=== PATIENT | female | born 1965 | race Caucasian/White ===

== ENCOUNTER 2016-04-23 07:01 | Emergency (ER) | payer BC ==
[2016-04-23 07:11] VITALS: BP 128/68
--- NOTE | 2016-04-23 07:22 | UC ---
Throat Pain/Nasal Pedro HPI - HPI Summary HPI Summary: sore throat and cough x 5 days, + nasal congestion , fever, chills, body aches - History of Current Complaint Chief Complaint: UCRespiratory Stated Complaint: SORE THROAT,ACHY,FEVER,COUGH Time Seen by Provider: 04/23/16 07:04 Hx Obtained From: Patient Hx Last Menstrual Period: n/a Onset/Duration: Gradual Onset, Lasting Days - 5, Still Present Severity: Moderate Cough: Nonproductive Associated Signs & Symptoms: Positive: Nasal Discharge, Fever. Negative: Dysphagia, Hoarseness, Sinus Discomfort, Rash - Allergies/Home Medications Allergies/Adverse Reactions: Allergies Allergy/AdvReac Type Severity Reaction Status Date / Time Penicillins Allergy Shortness Verified 04/23/16 07:11 of Breath Codeine AdvReac Intermediate AGGITATION Verified 04/23/16 07:11 Tetracyclines & Related AdvReac Intermediate Nausea Verified 04/23/16 07:11 seasonal allergy Allergy Eyes Uncoded 04/23/16 07:11 Itchy/Swollen/Red/Watery PMH/Surg Hx/FS Hx/Imm Hx Endocrine History Of: Reports: Thyroid Disease - hypo Denies: Diabetes Cardiovascular History Of: Denies: Cardiac Disorders, Hypertension Respiratory History Of: Reports: Asthma Denies: COPD GI/ History Of: Denies: Ulcer - Surgical History Surgical History: None - Family History Known Family History: Positive: None, Hypertension - Social History Alcohol Use: None Substance Use Type: None Smoking Status (MU): Never Smoked Tobacco - Immunization History Most Recent Tetanus Shot: 07/24/2004 Review of Systems Constitutional: Fever, Chills, Fatigue Skin: Negative Eyes: Negative ENT: Sore Throat, Nasal Discharge Respiratory: Cough Cardiovascular: Negative Gastrointestinal: Negative Genitourinary: Negative All Other Systems Reviewed And Are Negative: Yes Physical Exam Triage Information Reviewed: Yes Appearance: Well-Appearing, No Pain Distress, Obese Vital Signs: Initial Vital Signs Temp 98.9 F 04/23/16 07:04 Pulse 93 04/23/16 07:04 Resp 24 04/23/16 07:04 BP 128/68 04/23/16 07:04 Pulse Ox 100 04/23/16 07:04 Vital Signs Reviewed: Yes Eye Exam: Normal Eyes: Positive: Conjunctiva Clear ENT: Positive: Normal ENT inspection, Hearing grossly normal, Pharyngeal erythema, Nasal congestion, Nasal drainage, TMs normal Neck exam: Normal Neck: Positive: Supple, Nontender, No Lymphadenopathy Respiratory: Positive: Chest non-tender, Lungs clear, Normal breath sounds Cardiovascular: Positive: RRR, No Murmur, Pulses Normal Skin Exam: Normal Throat Pain/Nasal Course/Dx - Differential Dx/Diagnosis Provider Diagnoses: acute bronchitis Discharge - Discharge Plan Condition: Stable Disposition: HOME Prescriptions: Azithromycin TAB* [Zithromax TAB (Z-PATRICIO) 250 mg #6 tabs] 2 tab PO .TODAY, THEN 1 DAILY #1 patricio Patient Education Materials: Acute Bronchitis (ED) Forms: *Work Release Referrals: Ehsan Mcdonnell MD [Primary Care Provider] - 7 Days
== END 2016-04-23 07:24 | disposition home or self-care (01) ==
LOC: UCCORT 07:01
DX: J20.9 Acute bronchitis, unspecified (principal); E66.9 Obesity, unspecified; Z88.0 Allergy status to penicillin; Z88.1 Allergy status to other antibiotic agents; Z88.5 Allergy status to narcotic agent
CPT/HCPCS: 99212; G0463

== ENCOUNTER 2017-03-02 16:30 | Emergency (ER) | payer BC ==
[2017-03-02 17:07] VITALS: BP 119/54
--- NOTE | 2017-03-02 17:19 | UC ---
Respiratory Complaint HPI - HPI Summary HPI Summary: C/O cough since yesterday with body aches and shortness of breath. Headache as well - History of Current Complaint Chief Complaint: UCRespiratory Stated Complaint: COUGH,ACHES,FEVER Time Seen by Provider: 03/02/17 17:11 Hx Obtained From: Patient Hx Last Menstrual Period: n/a Onset/Duration: Sudden Onset, Lasting Days - 1, Worse Since - onset Severity Initially: Moderate Severity Currently: Severe Character: Cough: Nonproductive Alleviating Factors: Nothing Associated Signs And Symptoms: Positive: Dyspnea, Fever, Chills, Wheezing, Nasal Congestion. Negative: Pleuritic Chest Pain - Allergies/Home Medications Allergies/Adverse Reactions: Allergies Allergy/AdvReac Type Severity Reaction Status Date / Time Penicillins Allergy Shortness Verified 03/02/17 17:07 of Breath Codeine AdvReac Intermediate AGGITATION Verified 03/02/17 17:07 Tetracyclines & Related AdvReac Intermediate Nausea Verified 03/02/17 17:07 seasonal allergy Allergy Eyes Uncoded 03/02/17 17:07 Itchy/Swollen/Red/Watery Home Medications: Home Medications Acetaminophen TAB* [Tylenol TAB*] 975 mg PO Q4H PRN 03/02/17 [History Confirmed 03/02/17] Amitriptyline TAB* [Elavil TAB*] 25 mg PO BEDTIME 03/02/17 [History Confirmed ] PMH/Surg Hx/FS Hx/Imm Hx Endocrine History: Dyslipidemia Respiratory History: Asthma - Surgical History Surgical History: None - Family History Known Family History: Positive: None, Cardiac Disease, Hypertension Negative: Diabetes - Social History Occupation: Employed Full-time Lives: With Family Alcohol Use: None Substance Use Type: None Smoking Status (MU): Never Smoked Tobacco Have You Smoked in the Last Year: No - Immunization History Most Recent Tetanus Shot: 07/24/2004 Review of Systems Constitutional: Fever, Chills, Fatigue Respiratory: Cough Musculoskeletal: Myalgia Neurological: Headache Is Patient Immunocompromised?: No All Other Systems Reviewed And Are Negative: Yes Physical Exam Triage Information Reviewed: Yes Appearance: No Pain Distress, Ill-Appearing, Obese Vital Signs: Initial Vital Signs Temp 99.1 F 03/02/17 17:03 Pulse 112 03/02/17 17:03 Resp 21 03/02/17 17:03 BP 119/54 03/02/17 17:03 Pulse Ox 97 03/02/17 17:03 Vital Signs Reviewed: Yes Eyes: Positive: Conjunctiva Inflamed - OU ENT: Positive: Pharynx normal, TMs normal Neck exam: Normal Respiratory: Positive: Lungs clear, Wheezing - expiratory wheeze with cough. Cardiovascular Exam: Normal Musculoskeletal Exam: Normal Neurological Exam: Normal Psychological Exam: Normal Skin Exam: Normal UC Diagnostic Evaluation - Laboratory O2 Sat by Pulse Oximetry: 97 Respiratory Course/Dx - Differential Dx/Diagnosis Differential Diagnosis/HQI/PQRI: Asthma, Influenza, Lower Resp Infection, Sinusitis Provider Diagnoses: Influenza Type A Discharge - Discharge Plan Condition: Stable Disposition: HOME Prescriptions: Oseltamivir CAP* [Tamiflu CAP*] 75 mg PO BID #10 cap Patient Education Materials: Influenza (ED), Oseltamivir (By mouth) Forms: *Work Release Referrals: Ehsan Mcdonnell MD [Primary Care Provider] -
[2017-03-02] MEDS ORDERED: Ibuprofen TAB* 600 MG PO ONE (17:23)
[2017-03-02] MEDS ORDERED: Oseltamivir CAP* 75 MG PO ONE (17:34)
== END 2017-03-02 17:46 | disposition home or self-care (01) ==
LOC: UCCORT 16:30
DX: J10.1 Influenza due to other identified influenza virus with other respiratory manifestations (principal); E78.5 Hyperlipidemia, unspecified; J45.909 Unspecified asthma, uncomplicated; Z88.5 Allergy status to narcotic agent; Z88.0 Allergy status to penicillin; E66.9 Obesity, unspecified
CPT/HCPCS: 87502; 99212; A9270-GY; G0463

== ENCOUNTER 2017-06-14 16:34 | Emergency (ER) | payer BC ==
[2017-06-14 17:48] VITALS: BP 163/78
--- NOTE | 2017-06-14 17:52 | UC ---
Respiratory Complaint HPI - HPI Summary HPI Summary: sore throat cough headaches body aches and fever for 2 days--some nausea and vomiting today--no abdomen pain - History of Current Complaint Chief Complaint: UCGeneralIllness Stated Complaint: SORE THROAT/FEVER Time Seen by Provider: 06/14/17 17:43 Hx Obtained From: Patient Hx Last Menstrual Period: n/a ?: No Onset/Duration: Sudden Onset, Lasting Days - 2, Worse Since - today Timing: Constant Severity Initially: Mild Severity Currently: Moderate Pain Intensity: 5 Pain Scale Used: 0-10 Numeric Character: Cough: Nonproductive Aggravating Factors: Nothing Alleviating Factors: OTC Meds Associated Signs And Symptoms: Positive: Fever, Chills, URI, Nasal Congestion - Allergies/Home Medications Allergies/Adverse Reactions: Allergies Allergy/AdvReac Type Severity Reaction Status Date / Time codeine Allergy Agitation Verified 06/14/17 17:44 Penicillins Allergy Shortness Verified 06/14/17 17:44 of Breath Tetracyclines Allergy Nausea And Verified 06/14/17 17:44 Vomiting seasonal/environmental Allergy Eyes Uncoded 06/14/17 17:44 Itchy/Swollen/Red/Watery Home Medications: Home Medications Aspirin 81 mg CHEW TAB* [Aspirin Low Dose TAB*] 81 mg PO DAILY 06/14/17 [ History Confirmed 06/14/17] Levalbuterol HFA INHALER* [Xopenex Hfa Inhaler*] 2 puff INH QID PRN 06/14/17 [ History Confirmed 06/14/17] Levothyroxine TAB* [Synthroid TAB*] 75 mcg PO 0800 06/14/17 [History Confirmed 06/14/17] Lovastatin [Altoprev] 20 mg PO DAILY 06/14/17 [History Confirmed 06/14/17] PMH/Surg Hx/FS Hx/Imm Hx Previously Healthy: No Endocrine History: Hypothyroidism, Dyslipidemia Respiratory History: Asthma - Surgical History Surgical History: Yes Surgery Procedure, Year, and Place: right side neck lymph node bx (10-12 yrs ago ) - benign - Family History Known Family History: Positive: None, Cardiac Disease, Hypertension Negative: Diabetes - Social History Occupation: Employed Full-time Lives: With Family Alcohol Use: None Substance Use Type: None Smoking Status (MU): Never Smoked Tobacco Have You Smoked in the Last Year: No - Immunization History Most Recent Tetanus Shot: 07/24/2004 Review of Systems Constitutional: Fever, Chills, Fatigue Skin: Negative Eyes: Negative ENT: Sore Throat, Nasal Discharge Respiratory: Cough Cardiovascular: Negative Gastrointestinal: Negative Genitourinary: Negative Motor: Negative Neurovascular: Negative Musculoskeletal: Arthralgia Neurological: Headache Psychological: Negative Is Patient Immunocompromised?: No All Other Systems Reviewed And Are Negative: Yes Physical Exam Triage Information Reviewed: Yes Appearance: No Pain Distress, Ill-Appearing - mil, Obese Vital Signs: Initial Vital Signs Temp 101.9 F 06/14/17 17:39 Pulse 112 06/14/17 17:39 Resp 14 06/14/17 17:39 BP 163/78 06/14/17 17:39 Pulse Ox 95 06/14/17 17:39 Vital Signs Reviewed: Yes Eye Exam: Normal Eyes: Positive: Conjunctiva Clear ENT Exam: Normal ENT: Positive: Normal ENT inspection, Hearing grossly normal, Pharynx normal, Nasal congestion, Uvula midline. Negative: Nasal drainage, Tonsillar swelling, Tonsillar exudate, Trismus, Hoarse voice, Dental tenderness, Sinus tenderness Dental Exam: Normal Neck exam: Normal Neck: Positive: Supple, Nontender, No Lymphadenopathy Respiratory Exam: Normal Respiratory: Positive: Chest non-tender, Lungs clear, Normal breath sounds, No respiratory distress, No accessory muscle use Cardiovascular Exam: Normal Cardiovascular: Positive: RRR, No Murmur, Pulses Normal, Brisk Capillary Refill Abdominal Exam: Normal Abdomen Description: Positive: Nontender, No Organomegaly, Soft. Negative: CVA Tenderness (R), CVA Tenderness (L) Bowel Sounds: Positive: Present Musculoskeletal Exam: Normal Musculoskeletal: Positive: Strength Intact, ROM Intact, No Edema Neurological Exam: Normal Neurological: Positive: Alert, Muscle Tone Normal Psychological Exam: Normal Skin Exam: Normal UC Diagnostic Evaluation - Laboratory O2 Sat by Pulse Oximetry: 95 Diagnostic Studies Comment: ua-trace leukoesterace, influenza a/b (-), strep (-) - Radiology Xray Interpretation: No Acute Changes Radiology Interpretation Completed By: Radiologist Respiratory Course/Dx - Course Course Of Treatment: patient refuses zofran and suggestion to go to ED for further evaluation. Patient is agreeable to going to ED if Symptoms worsen or fail to begin to improve in the next 5-6 hours - Differential Dx/Diagnosis Provider Diagnoses: Acute febrile illness Discharge - Sign-Out/Discharge Documenting (check all that apply): Discharge - Discharge Plan Condition: Stable Disposition: HOME Patient Education Materials: Fever in Adults (ED) Referrals: Ehsan Mcdonnell MD [Primary Care Provider] - 1 Day Additional Instructions: If you worsen or fail to improve in the next few hours please go to the emergency department for further evaluation of fever-- - Billing Disposition and Condition Condition: STABLE Disposition: HOME
--- NOTE | 2017-06-14 18:44 | RAD ---
INDICATION: Cough, fever, nausea, headache, sore throat 2 days duration. History of asthma. COMPARISON: January 03, 2014 TECHNIQUE: Dual energy PA and routine lateral views of the chest were obtained. REPORT: Accounting for superimposed soft tissues with obese body habitus the lungs and pleural spaces are clear. Negative for cardiomegaly. Unremarkable central pulmonary vasculature. Accounting for rightward rotation the mediastinal contours are unremarkable. IMPRESSION: No evidence for pneumonia. Negative exam.
== END 2017-06-14 19:07 | disposition home or self-care (01) ==
LOC: UCCORT 16:34
DX: R50.9 Fever, unspecified (principal); Z88.3 Allergy status to other anti-infective agents; Z88.5 Allergy status to narcotic agent; Z88.0 Allergy status to penicillin
CPT/HCPCS: 71046; 81003; 87086; 87502; 87651; 99211; G0463

== ENCOUNTER 2018-08-19 07:09 | Emergency (ER) | payer BC ==
[2018-08-19 07:25] VITALS: BP 135/71
--- NOTE | 2018-08-19 07:57 | UC ---
Abdominal Pain Female HPI - HPI Summary HPI Summary: 52-year-old female comes in with a chief complaint of right upper quadrant abdominal pain. Started one week ago. Pain is constant. Overnight the pain was almost a 10 out of 10. Right now to 7 out of 10. No fevers no chills. Stools have been loose and light colored. Reports her urine is somewhat frothy. No prior abdominal surgeries. No chest pain no shortness of breath. Eating does not make the pain worse. Patient reports more than a month ago she had some left sided posterior chest pain with the emergency department where they found that she had diabetes with blood sugar 350. She reports the cardiac workup was normal. She was started on glyburide by her primary care physician. However that was discontinued because the blood sugars were go to load a 60. She was started on metformin at the beginning of July. Just before she was started on metformin she had blood work which showed a liver functions were elevated. Patient has not noticed any jaundiced. No burning with urination. - History of Current Complaint Chief Complaint: UCAbdominalPain Stated Complaint: LT SIDE PAIN Time Seen by Provider: 08/19/18 07:23 Hx Last Menstrual Period: n/a Pain Intensity: 7 Allergies/Adverse Reactions: Allergies Allergy/AdvReac Type Severity Reaction Status Date / Time codeine Allergy Agitation Verified 08/19/18 07:16 Penicillins Allergy Shortness Verified 08/19/18 07:16 of Breath Tetracyclines Allergy Nausea And Verified 08/19/18 07:16 Vomiting seasonal/environmental Allergy Eyes Uncoded 08/19/18 07:16 Itchy/Swollen/Red/Watery Home Medications: Home Medications Atorvastatin* [Lipitor*] 20 mg PO QPM 08/19/18 [History Confirmed 08/19/18] Cyclobenzaprine TAB* [Flexeril 10 MG TAB*] 5 mg PO TID PRN 08/19/18 [History Confirmed 08/19/18] Milk Thistle Seed Extract [Milk Thistle] 400 mg PO DAILY 08/19/18 [History Confirmed 08/19/18] metFORMIN* [Glucophage 500 MG TAB *] 500 mg PO BID 08/19/18 [History Confirmed 08/19/18] PMH/Surg Hx/FS Hx/Imm Hx Previously Healthy: Yes Endocrine History: Diabetes, Hypothyroidism, Dyslipidemia Respiratory History: Asthma - Surgical History Surgical History: Yes Surgery Procedure, Year, and Place: right side neck lymph node bx (10-12 yrs ago ) - benign - Family History Known Family History: Positive: None, Cardiac Disease, Hypertension Negative: Diabetes - Social History Alcohol Use: None Substance Use Type: None Smoking Status (MU): Never Smoked Tobacco Have You Smoked in the Last Year: No - Immunization History Most Recent Tetanus Shot: 07/24/2004 Review of Systems All Other Systems Reviewed And Are Negative: Yes Constitutional: Positive: Negative Skin: Positive: Negative Eyes: Positive: Negative ENT: Positive: Negative Respiratory: Positive: Negative Cardiovascular: Positive: Negative Gastrointestinal: Positive: Abdominal Pain Genitourinary: Positive: Other - SEE HPI Motor: Positive: Negative Neurovascular: Positive: Negative Musculoskeletal: Positive: Negative Neurological: Positive: Negative Psychological: Positive: Negative Is Patient Immunocompromised?: No Physical Exam Triage Information Reviewed: Yes Appearance: Well-Appearing, Well-Nourished, Pain Distress - MILD Vital Signs: Initial Vital Signs Temp 97.6 F 08/19/18 07:20 Pulse 88 08/19/18 07:20 Resp 18 08/19/18 07:20 BP 135/71 08/19/18 07:20 Pulse Ox 97 08/19/18 07:20 Vital Signs Reviewed: Yes Eye Exam: Normal Eyes: Positive: Conjunctiva Clear, Other: - NO SCLERAL ICTERUS Neck: Positive: Supple Respiratory: Positive: Lungs clear, Normal breath sounds, No respiratory distress Cardiovascular: Positive: RRR Abdomen Description: Positive: Soft, Other: - TENDER TO PALPATION RUQ/POSITIVE PONCE'S. Negative: CVA Tenderness (R), CVA Tenderness (L) Bowel Sounds: Positive: Present Musculoskeletal Exam: Normal Musculoskeletal: Positive: Strength Intact, ROM Intact Neurological Exam: Normal Neurological: Positive: Alert, Muscle Tone Normal Psychological Exam: Normal Psychological: Positive: Age Appropriate Behavior Skin Exam: Normal Abd Pain Female Course/Dx - Course Course Of Treatment: Patient Name: OBED NEVAREZ Medical Record#: [id number] Ordering Physician: Nelson Jones MD Acct.#: [id number] : 1965 Age: 52 Sex: F Location: [facility] Exam Date: 08/19/18 0748 ADM Status: REG ER Order Information: GALL BLADDER Accession Number: [id number] CPT: 31730 HISTORY: RUQ PAIN COMPARISONS: July 09, 2013 TECHNIQUE: Multiple transverse and longitudinal ultrasound images were obtained of the right upper quadrant of the abdomen using grayscale and color Doppler imaging. FINDINGS: LIVER: The liver is diffusely echogenic and coarse in echotexture, with decreased acoustic transmission. The liver measures 17.8 cm in long axis.. There is a simple cyst of the left lobe measuring 0.6 x 0.6 x 0.6 cm. There is normal hepatopedal flow of the portal vein on Doppler imaging. BILIARY TREE: There is no intrahepatic or extrahepatic biliary dilatation. The common duct measures 0.5 cm. GALLBLADDER: The gallbladder is well-visualized. There is no cholelithiasis, gallbladder wall thickening, pericholecystic fluid, or sonographic Ponce sign. PANCREAS: The head of the pancreas is unremarkable. The tail of the pancreas is not well visualized secondary to overlying bowel gas. RIGHT KIDNEY: The right kidney is normal in shape, size, contour, and echogenicity. There is no hydronephrosis or nephrolithiasis. The right kidney measures 10.2 x 4.9 x 5.6 cm. AORTA AND IVC: The aorta and IVC are unremarkable. FLUID: There are no pleural effusions. There is no free fluid within the hepatorenal recess. OTHER FINDINGS: None. IMPRESSION: FATTY INFILTRATION OF THE LIVER. <Electronically signed by Mateus Maurer MD in OV> 08/19/18 0810 I discussed with the patient that any lab work we do does not come back until tomorrow however we can do ultrasound and noncontrast CT here. I let her know that the emergency Department is able to do blood work to comes back within a couple of hours. We discussed further evaluation either here or in the emergency department and the patient prefers to have her evaluation here in clinic. No pulmonary Sx at this time. I discussed the ultrasound report with the patient. I discussed the ultrasound report with the patient. Patient has no fever. Patient reports that she had a CT of her chest abdomen and pelvis with in about a month when she visited the emergency room and was not told it was any pathology on it. There was some at the [facility]. She did not have this pain at that time. At this time the plan is to get blood work and have the patient follow-up with primary care doctor. No UTI Sx; Urine Culture pending. We discussed that if anything got worse with pain fevers she felt ill she needed to go directly to the emergency department for further evaluation and care. - Differential Dx/Diagnosis Provider Diagnosis: Right upper quadrant abdominal pain Discharge - Sign-Out/Discharge Documenting (check all that apply): Patient Departure All imaging exams completed and their final reports reviewed: Yes - Discharge Plan Condition: Stable Disposition: HOME Patient Education Materials: Acute Abdominal Pain (ED) Referrals: Ehsan Mcdonnell MD [Primary Care Provider] - Additional Instructions: FOLLOW UP WITH YOUR DOCTOR. GO TO THE EMERGENCY DEPARTMENT IF YOUR CONDITION PERSISTS OR WORSENS; PAIN, FEVER, VOMITING, BLOOD IN YOUR VOMIT OR STOOL, YOU FEEL ILL OR ANY QUESTIONS OR CONCERNS. - Billing Disposition and Condition Condition: STABLE Disposition: Home
[2018-08-19 14:35] LABS: ABS Eosinophils 0.2 10^3/ul (0-0.6); ABS Lymphocytes 1.2 10^3/ul (1.0-4.8); ABS Monocytes 0.3 10^3/ul (0-0.8); ABS Neutrophils 4.8 10^3/ul (1.5-7.7); Eosinophil % 3.7 %; Hematocrit 45 % (35-47); Hemoglobin 15.6 g/dL (12.0-16.0); Lymphocyte % 18.6 %; Mean Corpuscular HGB Conc 34 g/dL (31-36); Mean Corpuscular Hemoglobin 32 pg (27-31); Mean Corpuscular Volume 93 fL (80-97); Mean Platelet Volume 8.5 fL (7.4-10.4); Platelet Count 262 10^3/uL (150-450); Red Blood Count 4.85 10^6 /uL (3.70-4.87); Red Cell Distribution Width 13 % (10.5-15); White Blood Count 6.6 10^3/uL (3.5-10.8)
[2018-08-19 14:59] LABS: Albumin 4.4 g/dL (3.2-5.2); Albumin/Globulin Ratio 1.5 (1-3); BUN/Creatinine Ratio 15.7 (8-20); Calcium 9.8 mg/dL (8.6-10.3); EGFR African American 87.4 (>60); EGFR Non-African American 72.2 (>60); Globulin 2.9 g/dL (2-4); Potassium 4.1 mmol/L (3.5-5.0); Total Bilirubin 0.8 mg/dL (0.2-1.0); Total Protein 7.3 g/dL (6.4-8.9)
--- NOTE | 2018-08-20 12:37 | UC ---
- Progress Note Progress Note: Labs show mild increase in liver enzymes AST and ALT. These are consistent with the fatty liver findings found on her imaging. 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 Course/Dx - Diagnoses Provider Diagnoses: Right upper quadrant abdominal pain Discharge - Sign-Out/Discharge Documenting (check all that apply): Patient Departure All imaging exams completed and their final reports reviewed: Yes - Discharge Plan Condition: Stable Disposition: HOME Patient Education Materials: Acute Abdominal Pain (ED) Referrals: Ehsan Mcdonnell MD [Primary Care Provider] - Additional Instructions: FOLLOW UP WITH YOUR DOCTOR. GO TO THE EMERGENCY DEPARTMENT IF YOUR CONDITION PERSISTS OR WORSENS; PAIN, FEVER, VOMITING, BLOOD IN YOUR VOMIT OR STOOL, YOU FEEL ILL OR ANY QUESTIONS OR CONCERNS. - Billing Disposition and Condition Condition: STABLE Disposition: Home
== END 2018-08-19 08:56 | disposition home or self-care (01) ==
LOC: UCCORT 07:09
DX: R10.11 Right upper quadrant pain (principal); K76.0 Fatty (change of) liver, not elsewhere classified
CPT/HCPCS: 36415; 76705; 80053; 81003; 83690; 85025; 87086; 99212; G0463

== ENCOUNTER 2019-03-15 10:58 | Emergency (ER) | payer BC ==
[2019-03-15 12:06] VITALS: BP 136/74
--- NOTE | 2019-03-15 12:17 | UC ---
Throat Pain/Nasal Pedro HPI - HPI Summary HPI Summary: 53-year-old female with head and chest congestion over the past week but today it's more sinus pressure. She denies any fever. - History of Current Complaint Chief Complaint: UCRespiratory Stated Complaint: CONGESTION,COUGH Time Seen by Provider: 03/15/19 12:02 Hx Obtained From: Patient Hx Last Menstrual Period: n/a ?: No Onset/Duration: Gradual Onset Severity: Moderate Pain Intensity: 0 Cough: Nonproductive Associated Signs & Symptoms: Positive: Sinus Discomfort, Nasal Discharge - Allergies/Home Medications Allergies/Adverse Reactions: Allergies Allergy/AdvReac Type Severity Reaction Status Date / Time codeine Allergy Agitation Verified 03/15/19 12:02 Penicillins Allergy Shortness Verified 03/15/19 12:02 of Breath Tetracyclines Allergy Nausea And Verified 03/15/19 12:02 Vomiting seasonal/environmental Allergy Eyes Uncoded 03/15/19 12:02 Itchy/Swollen/Red/Watery Home Medications: Home Medications D-Methorphan/PE/Acetaminophen [Daytime Cold Multi-Symp Gelcap] 1 each PO ONCE [History Confirmed 03/15/19] PMH/Surg Hx/FS Hx/Imm Hx Previously Healthy: Yes Endocrine History: Diabetes Respiratory History: Asthma - Surgical History Surgical History: Yes Surgery Procedure, Year, and Place: right side neck lymph node bx (10-12 yrs ago ) - benign - Family History Known Family History: Positive: None, Cardiac Disease, Hypertension Negative: Diabetes - Social History Alcohol Use: None Substance Use Type: None Smoking Status (MU): Never Smoked Tobacco Have You Smoked in the Last Year: No - Immunization History Most Recent Tetanus Shot: 07/24/2004 Review of Systems All Other Systems Reviewed And Are Negative: Yes ENT: Positive: Nasal Discharge, Sinus Congestion, Sinus Pain/Tenderness Respiratory: Positive: Cough - Nonproductive cough. Is Patient Immunocompromised?: No Physical Exam Triage Information Reviewed: Yes Appearance: Well-Appearing, No Pain Distress, Well-Nourished Vital Signs: Initial Vital Signs Temp 97.5 F 03/15/19 12:02 Pulse 89 03/15/19 12:02 Resp 18 03/15/19 12:02 BP 136/74 03/15/19 12:02 Pulse Ox 99 03/15/19 12:02 Vital Signs Reviewed: Yes Eyes: Positive: Conjunctiva Clear ENT: Positive: Hearing grossly normal, Pharynx normal - Purulent yellow postnasal drainage., Nasal congestion, Nasal drainage - Yellow purulent nasal coryza., TMs normal, Sinus tenderness - Tenderness over the maxillary sinuses., Uvula midline Neck: Positive: Supple, Nontender, No Lymphadenopathy Respiratory: Positive: Lungs clear, Normal breath sounds, No respiratory distress, No accessory muscle use Cardiovascular: Positive: RRR, No Murmur, Pulses Normal, Brisk Capillary Refill Musculoskeletal Exam: Normal Neurological Exam: Normal Psychological Exam: Normal Skin Exam: Normal Throat Pain/Nasal Course/Dx - Course Course Of Treatment: Patient is comfortable here. She can use her albuterol inhaler for tight cough or wheezing however at this time I think this is more sinusitis. - Differential Dx/Diagnosis Provider Diagnosis: Sinusitis Discharge ED - Sign-Out/Discharge Documenting (check all that apply): Patient Departure All imaging exams completed and their final reports reviewed: No Studies - Discharge Plan Condition: Fair Disposition: HOME Prescriptions: DOXYcycline CAP(*) [DOXYcycline 100MG CAP(*)] 100 mg PO BID 10 Days #20 cap Patient Education Materials: Sinusitis (ED) Referrals: Ehsan Mcdonnell MD [Primary Care Provider] - Additional Instructions: Increase fluids, no dairy products, antacids or multivitamins or your magnesium 2 hours before you take the doxycycline and 2 hours after however take it with food. Use your albuterol inhaler 2 puffs every 4-6 hours as needed for tight cough or wheezing. Follow-up with your primary care provider in 3 or 4 days if no improvement. - Billing Disposition and Condition Condition: FAIR Disposition: Home
== END 2019-03-15 12:24 | disposition home or self-care (01) ==
LOC: UCCORT 10:58
DX: J32.9 Chronic sinusitis, unspecified (principal); E11.9 Type 2 diabetes mellitus without complications; J45.909 Unspecified asthma, uncomplicated; Z88.5 Allergy status to narcotic agent; Z88.0 Allergy status to penicillin; Z88.1 Allergy status to other antibiotic agents; Z91.09 Other allergy status, other than to drugs and biological substances
CPT/HCPCS: 99212; G0463